=== PATIENT | male | born 1930 | race Hispanic/Latino ===

== ENCOUNTER 2020-01-16 06:00 | Inpatient (IN) | payer OTHER, MEDICARE ==
[2020-01-16] VITALS (21 sets, daily range): BP systolic 100–147; BP diastolic 50–69
[~2020-01-16] VITALS: Ht 160 cm; Wt 61.4 kg
[2020-01-16] MEDS ORDERED: ONDANSETRON HCL 4 MG/2 ML VIAL IV PRN (09:00)
[2020-01-16] MEDS ORDERED: MAG HYDROX/AL HYDROX/SIMETH ES 30 ML SUSP UDCUP PO PRN (09:00)
[2020-01-16] MEDS ORDERED: MORPHINE SULFATE 2 MG/ML 1ML SYG IV PRN (09:00)
[2020-01-16] MEDS ORDERED: HEPARIN SODIUM 5000UNIT/ML 1ML VIAL SQ SCH (09:00)
[2020-01-16] MEDS ORDERED: HYDRALAZINE HCL 20 MG/ML VIAL IV PRN (09:00)
[2020-01-16] MEDS ORDERED: DIPHENHYDRAMINE HCL 25 MG CAPSULE PO PRN (09:00)
[2020-01-16] MEDS ORDERED: ACETAMINOPHEN 325 MG TAB PO PRN ×2 (09:00)
[2020-01-16] MEDS ORDERED: LACTULOSE 20 GM/30 ML UDCUP PO PRN (09:00)
[2020-01-16] MEDS ORDERED: ALBUTEROL SULFATE 0.083% 2.5 MG/3 ML INH IH PRN (09:00)
[2020-01-16] MEDS ORDERED: DiphenhydrAMINE HCL 50 MG/ML VIAL IV PRN (09:00)
[2020-01-16] MEDS ORDERED: NITROGLYCERIN 0.4 MG SL TAB SL PRN (09:00)
[2020-01-16] MEDS ORDERED: GUAIFENESIN-DM 200/20 MG 10 ML PO PRN (09:00)
[2020-01-16] MEDS ORDERED: POTASSIUM CHLORIDE 10% ELIXIR 20 MEQ/15 ML UDCUP PO PRN (09:30)
[2020-01-16] MEDS ORDERED: POTASSIUM CHLORIDE 20MEQ/100ML 100 ML IV PRN ×2 (09:30)
[2020-01-16] MEDS ORDERED: POTASSIUM CHLORIDE 20 MEQ ERTAB PO PRN (09:30)
[2020-01-16] MEDS: FAMOTIDINE/PF 20 MG/2 ML VIAL IV SCH ×2 (09:43→20:35)
[2020-01-16] MEDS: LACTATED RINGERS 1000ML 1,000 ML IV SCH ×2 (09:44→20:43)
[2020-01-16] MEDS ORDERED: IOHEXOL-350 50ML VIAL IV ONE (10:22)
[2020-01-16] MEDS ORDERED: LIDOCAINE HCL 2% 20ML ONE (10:23)
[2020-01-16] MEDS ORDERED: PROPOFOL 10 MG/ML 20ML VIAL IV ONE (10:23)
[2020-01-16] MEDS ORDERED: SUCCINYLCHOLINE 200MG/10ML SYR ONE (10:23)
[2020-01-16] MEDS ORDERED: PHENYLEPHRINE HCL 10 MG/ML 1ML VIAL IV ONE (10:34)
[2020-01-16] MEDS ORDERED: RIVA15TA PO (10:35)
[2020-01-16] MEDS ORDERED: LEVO50TA11 PO (10:35)
[2020-01-16] MEDS ORDERED: FOLI0.8T PO (10:35)
[2020-01-16] MEDS ORDERED: EPHEDRINE SULFATE 50 MG/ML AMPULE ONE (10:35)
[2020-01-16] MEDS ORDERED: ROCURONIUM 10MG/1ML SYR 10 MG/ML ML ONE (10:35)
[2020-01-16 10:55] LABS: INR 0.99 (0.85-1.15); PARTIAL THROMBOPLASTIN TIME 30.4 SEC (26.3-35.5); PROTHROMBIN TIME 10.7 SEC (9.6-11.6)
[2020-01-16] MEDS: INDOMETHACIN 50 MG SUPP.RECT RC SCH (11:15)
[2020-01-16] MEDS: ZOSYN 3.375GM+NS 50ML 50 ML IV SCH ×2 (13:19→20:35)
[2020-01-16] MEDS: ARTIFICAL TEARS SOL 15 ML OP SCH ×3 (13:20→20:36)
[2020-01-17 03:16] VITALS: BP 102/56
[2020-01-17 04:02] LABS: BASOPHILS % (AUTO) 0.2 % (0.0-5.0); EOSINOPHILS % (AUTO) 1.2 % (0.0-8.0); HEMATOCRIT 31.1 % (42-54); LYMPHOCYTES % (AUTO) 15.9 % (21.0-51.0); MEAN CORPUSCULAR HEMOGLOBIN 31.2 pg (27.0-33.0); MEAN CORPUSCULAR HGB CONC 33.1 g/dL (32.0-36.0); MEAN CORPUSCULAR VOLUME 94.2 fL (79-99); NEUTROPHILS % (AUTO) 73.2 % (40.0-77.0); PLATELET COUNT (AUTO) 153 K/uL (130-400); RED CELL DISTRIBUTION WIDTH 13.6 % (11.0-15.5); WHITE BLOOD COUNT (AUTO) 6.7 K/uL (4.8-10.8)
[2020-01-17 04:09] LABS: INR 0.98 (0.85-1.15); PARTIAL THROMBOPLASTIN TIME 29.5 SEC (26.3-35.5); PROTHROMBIN TIME 10.6 SEC (9.6-11.6)
[2020-01-17 04:12] LABS: ALBUMIN 2.4 g/dL (3.5-5.0); BILIRUBIN,TOTAL 0.8 mg/dL (0.2-1.0); CREATININE 0.9 mg/dL (0.5-1.5); TOTAL PROTEIN, SERUM 6.2 g/dL (6.0-8.3)
[2020-01-17] MEDS: ZOSYN 3.375GM+NS 50ML 50 ML IV SCH ×3 (05:01→21:00)
[2020-01-17] MEDS: LACTATED RINGERS 1000ML 1,000 ML IV SCH ×2 (05:02→17:02)
[2020-01-17 07:42] VITALS: BP 90/51
[2020-01-17] MEDS: FAMOTIDINE/PF 20 MG/2 ML VIAL IV SCH ×2 (08:48→21:00)
[2020-01-17] MEDS: ARTIFICAL TEARS SOL 15 ML OP SCH ×4 (08:54→21:00)
[2020-01-17] MEDS: INDOMETHACIN 50 MG SUPP.RECT RC SCH (11:15)
[2020-01-17 11:53] VITALS: BP 119/54
[2020-01-17 16:55] VITALS: BP 120/65
--- NOTE | 2020-01-17 17:00 | NUR ---
INITIAL: Pt sleepy during rounds, unable to arouse. Call placed to EC son Casey. Per Casey prior to admission pt was living w his son (Gabe Winn) and was independent w ambulation and ADLs. Pt has provider services but Casey is unsure # of hours. Pt has at home a chair and was driving prior to admission. Per Casey dcp will be for pt to return home w his brother Gabe. CM to continue to follow and wait for Md recommendations. Addendum: 01/17/20 at 1703 by KESHIA CHIRINOS Amended: Links added.
[2020-01-17 20:00] VITALS: BP 124/63
[2020-01-17 23:35] VITALS: BP 120/66
[2020-01-18 04:00] VITALS: BP 147/70
[2020-01-18] MEDS: LACTATED RINGERS 1000ML 1,000 ML IV SCH ×2 (04:13→10:58)
[2020-01-18] MEDS: ZOSYN 3.375GM+NS 50ML 50 ML IV SCH ×2 (04:13→13:00)
[2020-01-18 04:25] LABS: EOSINOPHILS % (AUTO) 1.5 % (0.0-8.0); HEMATOCRIT 32.4 % (42-54); LYMPHOCYTES % (AUTO) 29.6 % (21.0-51.0); MEAN CORPUSCULAR HEMOGLOBIN 30.7 pg (27.0-33.0); MEAN CORPUSCULAR VOLUME 93.1 fL (79-99); MONOCYTES % (AUTO) 9.8 % (3.0-13.0); PLATELET COUNT (AUTO) 164 K/uL (130-400); RED BLOOD CELL COUNT(AUTO) 3.48 MIL/uL (4.50-6.20); RED CELL DISTRIBUTION WIDTH 13.4 % (11.0-15.5); WHITE BLOOD COUNT (AUTO) 4.7 K/uL (4.8-10.8)
[2020-01-18 04:40] LABS: ALBUMIN 2.5 g/dL (3.5-5.0); BILIRUBIN,TOTAL 0.5 mg/dL (0.2-1.0); CREATININE 0.9 mg/dL (0.5-1.5); POTASSIUM 3.9 mmol/L (3.5-5.1); TOTAL PROTEIN, SERUM 6.5 g/dL (6.0-8.3)
[2020-01-18 08:32] VITALS: BP 147/69
[2020-01-18] MEDS ORDERED: CIPROFLOXACIN HCL 500 MG TABLET PO SCH (09:45)
[2020-01-18] MEDS ORDERED: CIPR-245 PO (09:48)
[2020-01-18] MEDS: INDOMETHACIN 50 MG SUPP.RECT RC SCH (11:15)
[2020-01-18 11:29] VITALS: BP 137/65
[2020-01-18] MEDS: FAMOTIDINE/PF 20 MG/2 ML VIAL IV SCH (12:08)
[2020-01-18] MEDS: ARTIFICAL TEARS SOL 15 ML OP SCH ×2 (12:08→13:00)
== END 2020-01-18 15:20 | disposition home or self-care (01) | DRG 444 ==
LOC: 3BH 06:10
PROVIDERS: ADMIT Internal Medicine; ATTEND Internal Medicine
PROC: 0FC98ZZ Extirpation of Matter from Common Bile Duct, Via Natural or Artificial Opening Endoscopic (ICD-10-PCS; principal; 2020-01-16)
DX: K80.51 Calculus of bile duct without cholangitis or cholecystitis with obstruction (principal); K85.90 Acute pancreatitis without necrosis or infection, unspecified; N17.9 Acute kidney failure, unspecified; D68.59 Other primary thrombophilia; N18.4 Chronic kidney disease, stage 4 (severe); R17 Unspecified jaundice; E03.9 Hypothyroidism, unspecified; G47.00 Insomnia, unspecified; K59.00 Constipation, unspecified; H91.90 Unspecified hearing loss, unspecified ear; K82.8 Other specified diseases of gallbladder; I12.9 Hypertensive chronic kidney disease with stage 1 through stage 4 chronic kidney disease, or unspecified chronic kidney disease; K83.8 Other specified diseases of biliary tract
CPT/HCPCS: 36415; 43200; 43262; 43264; 74330; 80053; 82150; 83690; 85025; 85610; 85730; 94664; 94760; A4606; C1769; G0378; J0330; J2370; J2405; J2543; J2704; J3490; J7120; Q9967